=== PATIENT | female | born 1970 | race Caucasian/White ===

== ENCOUNTER 2018-11-21 21:11 | Emergency (ER) | payer MEDICAID, OTHER ==
[~2018-11-21] VITALS: Ht 162.6 cm; Wt 53.3 kg
[2018-11-21 21:19] VITALS: Ht 162.6 cm; Wt 53.3 kg
--- NOTE | 2018-11-22 00:54 | ERD ---
ER Documentation Chief Complaint Chief Complaint bib sister; c/o hallucinations; rash on prerna arms; drug use; no appetite HPI The patient is a 48-year-old female, presenting to the ER because of auto hallucination according to the sister who brought her to the emergency department. She denies homicidal/suicidal ideation. She denies headache, neck pain, chest pain, dyspnea, abdominal pain, vomiting. She denies smoking or drinking or using illicit drugs. Her sister stated that she was hospitalized psychiatric hospital recently, the details unclear. She complaint of nonspecific body rash intermittently for the last 2 weeks Past medical/surgical history: None ROS All systems reviewed and are negative except as per history of present illness. Physical Exam Vitals Vital Signs Date Temp Pulse Resp B/P (MAP) Pulse Ox O2 O2 Flow FiO2 Time Delivery Rate 11/22/18 98.4 88 20 117/59 97 01:00 (78) 11/21/18 98.4 92 20 117/59 97 21:19 (78) Physical Exam Const: No acute distress. Head: Atraumatic. Eyes: Normal Conjunctiva. ENT: Normal External Ears, Nose and Mouth. Neck: Full range of motion. No meningismus. Resp: Clear to auscultation bilaterally. Cardio: Regular rate and rhythm. Abd: Soft, non distended, normal bowel sounds, non tender. Skin: maculopapular erythematous rash throughout the body but no vesicles/pustules Back: No midline or flank tenderness. Ext: No cyanosis, or edema. Neur: Awake and alert. No focal deficit Psych: Psychotic Result Diagram: 11/22/18 0247 11/22/18 0247 Results 24 hrs Laboratory Tests Test 11/22/18 02:44 11/22/18 02:46 11/22/18 02:47 Bedside Urine pH (LAB) 6.0 Bedside Urine Protein (LAB) Negative Bedside Urine Glucose (UA) Negative Bedside Urine Ketones (LAB) Negative Bedside Urine Blood 1+ Bedside Urine Nitrite (LAB) Negative Bedside Urine Leukocyte Esterase Trace (L POC Beta HCG, Qualitative NEGATIVE White Blood Count 7.7 10^3/ul Red Blood Count 4.12 10^6/ul Hemoglobin 11.9 g/dl Hematocrit 36.0 % Mean Corpuscular Volume 87.4 fl Mean Corpuscular Hemoglobin 28.9 pg Mean Corpuscular 33.1 g/dl Hemoglobin Concent Red Cell Distribution Width 12.5 % Platelet Count 340 10^3/UL Mean Platelet Volume 9.6 fl Immature Granulocytes % 0.500 % Neutrophils % 58.6 % Lymphocytes % 28.5 % Monocytes % 8.7 % Eosinophils % 2.9 % Basophils % 0.8 % Nucleated Red Blood Cells % 0.0 /100WBC Immature Granulocytes # 0.040 10^3/ul Neutrophils # 4.5 10^3/ul Lymphocytes # 2.2 10^3/ul Monocytes # 0.7 10^3/ul Eosinophils # 0.2 10^3/ul Basophils # 0.1 10^3/ul Nucleated Red Blood Cells # 0.0 10^3/ul Urine Color YELLOW Urine Clarity CLEAR Urine pH 6.0 Urine Specific [place] 1.012 Urine Ketones NEGATIVE mg/dL Urine Nitrite NEGATIVE mg/dL Urine Bilirubin NEGATIVE mg/dL Urine Urobilinogen NEGATIVE mg/dL Urine Leukocyte Esterase TRACE Gerald/ul Urine Microscopic RBC 1 /HPF Urine Microscopic WBC 2 /HPF Urine Squamous Epithelial Cells FEW /HPF Urine Hemoglobin 1+ mg/dL Urine Glucose NEGATIVE mg/dL Urine Total Protein NEGATIVE mg/dl Sodium Level 139 mmol/L Potassium Level 3.8 mmol/L Chloride Level 104 mmol/L Carbon Dioxide Level 28 mmol/L Anion Gap 7 Blood Urea Nitrogen 19 mg/dl Creatinine 0.56 mg/dl Est Glomerular Filtrat > 60 mL/min Rate mL/min Glucose Level 115 mg/dl Calcium Level 8.8 mg/dl Total Bilirubin 0.2 mg/dl Direct Bilirubin 0.00 mg/dl Indirect Bilirubin 0.2 mg/dl Aspartate Amino Transf (AST/SGOT) 16 IU/L Alanine 13 IU/L Aminotransferase (ALT/SGPT) Alkaline Phosphatase 60 IU/L Total Protein 7.6 g/dl Albumin 3.9 g/dl Globulin 3.70 g/dl Albumin/Globulin Ratio 1.05 Salicylates Level < 1.0 mg/dl Urine Opiates Screen Negative Acetaminophen Level < 10.0 ug/ml Urine Barbiturates NEGATIVE Urine Amphetamines Screen POSITIVE Urine Benzodiazepines Screen Negative Urine Cocaine Screen Negative Urine Cannabinoids Negative Ethyl Alcohol Level < 10.0 mg/dl Current Medications Medications Dose Sig/Villa Start Time Status Last (Trade) Ordered Route PRN Stop Time Admin Dose Reason Admin 50 mg ONCE ONCE 11/22/18 DC 11/22/18 Diphenhydrami PO 03:00 03:31 ne HCl 411/19 03:01 (Benadryl) Risperidone 0.5 mg HS PO 11/22/18 (Risperdal) 21:00 Procedures/MDM MEDICAL MAKING DECISION: The patient is a 48-year-old female, presenting with acute psychosis, acute amphetamine abuse, nonspecific rash. She was treated with Benadryl 50 mg p.o. for her rash good response. The differential diagnoses considered include but are not limited to drug- induced psychosis, psychosis, substance abuse, anxiety attack, panic attack Departure Diagnosis: Primary Impression: Psychosis Additional Impressions: Amphetamine abuse Rash and nonspecific skin eruption Anemia Condition: Stable Comments I discussed the patient with telepsychiatrist after his examination. He recommended 5150. His recommendation was carried out She is clear for psychiatric admission TOPHER HOBSON MD Nov 22, 2018 00:54
[2018-11-22] MEDS ORDERED: DIPHENHYDRAMINE 50 MG CAP PO ONE (03:00)
--- NOTE | 2018-11-22 04:10 | PSY ---
Date/Time of Note Date/Time of Note DATE: 11/22/18 TIME: 04:02 Psychiatric Subjective Eval Consent Pt consented to telemedicine: Yes Subjective Evaluation Patient location: emergency Chief Complaint: bib sister; c/o hallucinations; rash on prerna arms; drug use; no appetite Psychiatric Objective Eval Mental Status Examination: Laboratory Results Laboratory Tests Test 11/22/18 02:44 11/22/18 02:46 11/22/18 02:47 Bedside Urine pH (LAB) 6.0 Bedside Urine Protein (LAB) Negative Bedside Urine Glucose (UA) Negative Bedside Urine Ketones (LAB) Negative Bedside Urine Blood 1+ Bedside Urine Nitrite (LAB) Negative Bedside Urine Leukocyte Esterase Trace (L POC Beta HCG, Qualitative NEGATIVE White Blood Count 7.7 10^3/ul Red Blood Count 4.12 10^6/ul Hemoglobin 11.9 g/dl Hematocrit 36.0 % Mean Corpuscular Volume 87.4 fl Mean Corpuscular Hemoglobin 28.9 pg Mean Corpuscular 33.1 g/dl Hemoglobin Concent Red Cell Distribution Width 12.5 % Platelet Count 340 10^3/UL Mean Platelet Volume 9.6 fl Immature Granulocytes % 0.500 % Neutrophils % 58.6 % Lymphocytes % 28.5 % Monocytes % 8.7 % Eosinophils % 2.9 % Basophils % 0.8 % Nucleated Red Blood Cells % 0.0 /100WBC Immature Granulocytes # 0.040 10^3/ul Neutrophils # 4.5 10^3/ul Lymphocytes # 2.2 10^3/ul Monocytes # 0.7 10^3/ul Eosinophils # 0.2 10^3/ul Basophils # 0.1 10^3/ul Nucleated Red Blood Cells # 0.0 10^3/ul Urine Color YELLOW Urine Clarity CLEAR Urine pH 6.0 Urine Specific [place] 1.012 Urine Ketones NEGATIVE mg/dL Urine Nitrite NEGATIVE mg/dL Urine Bilirubin NEGATIVE mg/dL Urine Urobilinogen NEGATIVE mg/dL Urine Leukocyte Esterase TRACE Gerald/ul Urine Microscopic RBC 1 /HPF Urine Microscopic WBC 2 /HPF Urine Squamous Epithelial Cells FEW /HPF Urine Hemoglobin 1+ mg/dL Urine Glucose NEGATIVE mg/dL Urine Total Protein NEGATIVE mg/dl Assessment and Plan Recommendation/Plan Discharge Disposition: Psychiatric inpatient Legal Status: Place involuntary hold Assessment Additional comments: IDENTIFYING INFORMATION: 48 year old Female patient who is currently located at the hospital and for whom psychiatric consultation was requested. SOURCES OF INFORMATION: The patient who appears to be unreliable and the medical records; the nursing staff. CHIEF COMPLAINT: "depressed". HISTORY OF PRESENT ILLNESS: The patient was interviewed via telemedicine in the presence of and under the supervision of nursing staff of the hospital. The consent to conducting this interview via telemedicine was obtained by the nursing staff at the hospital. ALESSANDRO Sparrow reports that the patient presented with SI, HI against roommate, and her sister was concerned about her. Has h/o substance use. The patient reports having AH. Reports that there is a game going on that they are playing with her mind in her neighborhood. Reports that they placed a chip to her ear or a virus. The patient denies having SI, HI. The patient denies using alcohol heavily or regularly. The patient denies using any other substances. PAST MEDICAL HISTORY: none. CURRENT MEDICATIONS: none. ALLERGIES TO MEDICATIONS: NKDA. LABORATORY TESTS: CBC with H/H 11.9/36, betahCG negative, CMP pending, UDS pending, alcohol level pending. SOCIAL HISTORY: , 3 kids, lives alone, REVIEW OF SYSTEMS: Constitutional (e.g., fever, weight loss): negative; Eyes, Ears, Nose, Mouth, Throat: negative; Cardiovascular: negative; Respiratory: negative; Gastrointestinal: negative; Genitourinary: negative; Musculoskeletal: negative; Integumentary (skin and/or breast): negative; Neurological: negative; Psychiatric: as per HPI; Endocrine: negative; Hematologic/Lymphatic: negative; Allergic/Immunologic: negative. MENTAL STATUS EXAMINATION: General Appearance and Behavior: somewhat anxious, appears to be responding to internal stimuli, partially cooperative with most of the interview, pleasant with the current interviewer, makes poor eye contact, poorly groomed, normal psychomotor activity, no abnormal movements noted. Speech: Normal rate, regular rhythm, normal latency, normal volume. Flow of thought: tangential, illogical, not goal-directed. Content of thought: + auditory hallucinations, + paranoid delusions, no visual hallucinations, + suicidal ideation; positive for homicidal ideation. Mood: "OK". Affect: somewhat euphoric, decreased range of reactivity. Attention: normal based on the interview. Insight: poor. Judgment: poor. Memory: normal based on the interview. Sensorium: alert and oriented to person, date, place. ASSESSMENT: The patient's presentation and history are consistent with the diagnosis of unspecified psychotic disorder. The patient presents with an exacerbation of psychosis in the context of medication noncompliance, psychosocial stressors and possible substance use. PLAN: - Medication management: Would start risperidone 0.5 mg by mouth at bedtime. Would start haloperidol 5 mg IM PRN severe agitation q4 hours. Would start diphenhydramine 50 mg IM PRN severe agitation q4 hours. Would start lorazepam 2 mg IM PRN severe agitation q4 hours Will defer to the inpatient psychiatry team for other medication changes. - Labs: Please check Alcohol level, UDS. - Psychotherapy: Provided supportive psychotherapy and psychoeducation. - Disposition: Would recommend involuntary admission to the inpatient psychiatric unit given the severity of the patient's psychiatric condition and the fact that the patient is an imminent danger to self and/or others so long as the patient has been cleared medically for admission to psychiatry. Inpatient psychiatric admission is at this time the least restrictive environment where the patient can receive the psychiatric care that is needed. Would place on suicide precautions. The patient fulfills criteria for being placed on an involuntary hold for being a danger to self, others and gravely disabled due to a psychiatric disorder. I called the physician who is taking care of the patient to discuss about the above plan but the physician is not available at this time. I left my phone number with the hospital staff requesting a callback so that the physician can reach me when they become available. TERRENCE MAURER MD Nov 22, 2018 04:10
[2018-11-22] MEDS ORDERED: RISPERIDONE 0.25 MG TAB PO SCH (21:00)
[2018-11-22] MEDS ORDERED: OLAN5TAB5 PO (22:47)
[2018-11-23 13:34] VITALS: BP 118/83; PULSE 90; RESP 16
== END 2018-11-23 13:43 | disposition short-term general hospital (02) ==
LOC: E/R 21:11
DX: F29 Unspecified psychosis not due to a substance or known physiological condition (principal); F15.10 Other stimulant abuse, uncomplicated; D64.9 Anemia, unspecified; R21 Rash and other nonspecific skin eruption; R40.2142 Coma scale, eyes open, spontaneous, at arrival to emergency department; R40.2252 Coma scale, best verbal response, oriented, at arrival to emergency department; R40.2362 Coma scale, best motor response, obeys commands, at arrival to emergency department
CPT/HCPCS: 36415; 80053; 80307; 81001; 81003; 81025; 85025; Z7502; Z7610